=== PATIENT | male | born 1945 | race Caucasian/White ===

== ENCOUNTER 2016-12-13 09:48 | Day surgery (SDC) | payer MEDICARE ==
--- NOTE | ~2016-12-13 | EGD ---
EGD REPORT [facility] [address] [address] NAME: FREDDY BRYANT : 43 STATUS : REG [facility]#: [id number] AGE: 71 ADM/REG DATE : 12/13/16 MR#: [id number] REPORT SERV DATE: 12/13/16 DICTATED BY: ROSAS SANCHEZ DATE: 12/13/16 REPORT STATUS : Draft [facility] BY: [facility] DATE: 12/13/16 [facility] Center Patient Name: Freddy Bryant Date of : 1945 Attending MD: ROSAS SANCHEZ MD Procedure Date No Time: 12/13/2016 Procedure: Upper GI endoscopy Indications: Dysphagia Referring MD: DINORAH SLOAN Medicines: as per anesthesia Complications: No immediate complications. Procedure: Pre-Anesthesia Assessment: - ASA Grade Assessment: III - A patient with severe systemic disease. After obtaining informed consent, the endoscope was passed under direct vision. Throughout the procedure, the patient's blood pressure, pulse, and oxygen saturations were monitored continuously. The GIF [id number] was introduced through the mouth, and advanced to the third part of duodenum. The upper GI endoscopy was accomplished without difficulty. The patient tolerated the procedure. Findings: A moderate Schatzki ring (acquired) was found at the gastroesophageal junction. The scope was withdrawn. Dilation was performed with a Davidson dilator with no resistance at 44 Fr. The entire examined stomach was normal. The cardia and gastric fundus were normal on retroflexion. The examined duodenum was normal. Impression: - Moderate Schatzki ring. Dilated. - Normal stomach. - Normal examined duodenum. Recommendation: - Follow an antireflux regimen. - Continue present medications. Procedure Code(s): --- Professional --- 08088, Esophagogastroduodenoscopy, flexible, transoral; diagnostic, including collection of specimen(s) by brushing or washing, when performed (separate procedure) 39480, Dilation of esophagus, by unguided sound or bougie, single or multiple passes EGD REPORT [facility] [address] [place]. [address] NAME: FREDDY BRYANT : [birth year] STATUS : REG [facility] [place] PAT#: [id number] AGE: 71 ADM/REG DATE : 12/13/16 MR#: [id number] REPORT SERV DATE: 12/13/16 DICTATED BY: ROSAS SANCHEZ. DATE: 12/13/16 REPORT STATUS : Draft TRANSCRIBED BY: [employer] DATE: 12/13/16 Diagnosis Code(s): --- Professional --- K22.2, Esophageal obstruction R13.10, Dysphagia, unspecified CPT copyright 2013 [employer]. All rights reserved. The codes documented in this report are preliminary and upon attendant children's institution review may be revised to meet current compliance requirements. ROSAS SANCHEZ MD 12/13/2016 12:13 PM This report has been signed electronically. Number of Addenda: 0 Note Initiated On: 12/13/2016 11:45 AM Scope Withdrawal Time 0 hours 0 minutes 0 seconds [address] [place] [address]
[~2016-12-13 09:48] MED LIST: ACTOS30 PO; ASAB PO; FORTAMET500 MG PO; HYDROCHLOROT25 MG PO; LIPITOR20 PO; LOP50 PO; MICARDIS80 PO; NORV10 PO
== END 2016-12-13 23:59 | disposition home or self-care (01) ==
LOC: DMU 09:48
PROVIDERS: Internal Medicine Gastroenterology
PROC: 0D758DZ Dilation of Esophagus with Intraluminal Device, Via Natural or Artificial Opening Endoscopic (ICD-10-PCS; principal; 2016-12-13 11:00)
PROC: 0DJ08ZZ Inspection of Upper Intestinal Tract, Via Natural or Artificial Opening Endoscopic (ICD-10-PCS; 2016-12-13 11:00)
DX: K22.2 Esophageal obstruction (principal); I10 Essential (primary) hypertension; E11.9 Type 2 diabetes mellitus without complications; E78.00 Pure hypercholesterolemia, unspecified; Z79.82 Long term (current) use of aspirin; Z79.84 Long term (current) use of oral hypoglycemic drugs; Z79.899 Other long term (current) drug therapy; Z90.89 Acquired absence of other organs; Z98.890 Other specified postprocedural states; Z85.46 Personal history of malignant neoplasm of prostate; Z92.3 Personal history of irradiation; Z90.79 Acquired absence of other genital organ(s)
CPT/HCPCS: 82962